=== PATIENT | female | born 1970 | race Caucasian/White ===

== ENCOUNTER 2016-10-02 21:58 | Inpatient (IN) | payer MEDICARE, OTHER ==
--- NOTE | 2016-10-02 22:51 | ED Physician Chart ---
Chief Complaint/HPI - Patient Information Date Seen:: 10/02/16 Time Seen:: 22:00 Chief Complaint:: Abdominal Pain History of Present Illness:: Onset x one day of intermittent, crampy lower abdominal pain with nausea; no A/V /D/C, fever, chills,melena, hematochezia, hematemesis, C/P, SOB, cough, congestion; has dark colored urine; no other urinary s/s; has flank pain; no H/ As, vertigo, neck pain, vaginal bleeding or discharge Allergies:: Allergies Allergy/AdvReac Type Severity Reaction Status Date / Time No Known Allergies Allergy Verified 10/02/16 22:15 Vitals:: Vital Signs - 8 hr 10/02/16 22:04 Temp 98.6 F HR 69 RR 18 BP 131/77 O2 Sat % 99 Historian:: Patient, Family Member Review:: Nurse's Note Reviewed Review of Systems - Review of Systems General/Constitutional: Fever, Chills, No weight loss, No weakness, No diaphoresis, No edema, No loss of appetite Skin: No skin lesions, No rash, No bruising Head: No headache, No light-headedness Eyes: No loss of vision, No pain, No diplopia ENT: No earache, No nasal drainage, No sore throat, No tinnitus Neck: No neck pain, No swelling, No thyromegaly, No stiffness, No mass noted Cardio Vascular: No chest pain, No palpitations, No PND, No orthopnea, No edema Pulmonary: No SOB, Cough, No sputum, No wheezing GI: Nausea, Vomiting, Diarrhea, Pain, No melena, No hematochezia, No constipation, No hematemesis G/U: Dysuria, Frequency, No hematuria Biologics Specialist: No vaginal discharge, No abnormal vaginal bleed, No contraction Musculoskeletal: No bone or joint pain, No back pain, No muscle pain Endocrine: No polyuria, No polydipsia Psychiatric: No prior psych history, No depression, No anxiety, No suicidal ideation, No homicidal ideation, No auditory hallucination, No visual hallucination Hematopoietic: No bruising, No lymphadenopathy Allergic/Immuno: No urticaria, No angioedema Neurological: No syncope, No focal symptoms, No weakness, No paresthesia, No headache, No seizure, No dizziness, No confusion, No vertigo Past Medical History - Past Medical History Past Medical History: No significant medical hx Family History: HTN Social History: Non Smoker, No Alcohol, No Drug Use, Surgical History: None Psychiatricy History: None Medication: Reviewed Family Medical History - Family Member Mother Hx Family Hypertension: Yes Physical Exam - Physical Examination General/Constitutional: Awake, Well-developed, well-nourished, Alert, No distress, GCS 15, Non-toxic appearing, Ambulatory Head: Atraumatic Eyes: Lids, conjuctiva normal, PERRL, EOMI Skin: Nl inspection, No rash, No skin lesions, No ecchymosis, Well hydrated, No lymphadenopathy ENMT: External ears, nose nl, Nasal exam nl, Lips, teeth, gums nl Neck: Nontender, Full ROM w/o pain, No JVD, No nuchal rigidity, No bruit, No mass, No stridor Respiratory: Nl effort/Exclusion, Clear to Auscultation, No Wheeze/Rhonchi/Rales Cardio Vascular: RRR, No murmur, gallop, rubs, NL S1 S2 GI: No tenderness/rebounding/guarding, No organomegaly, No hernia, Normal BS's, Nondistended, No mass/bruits, No McBurney tenderness : No CVA tenderness Extremities: No tenderness or effusion, Full ROM, normal strength in all extremities, No edema, Normal digits & nails Neuro/Psych: Alert/oriented, DTR's symmetric, Normal sensory exam, Normal motor strength, Judgement/insight normal, Mood normal, Normal gait, No focal deficits Misc: normal gait, Normal back, No paraspinal tenderness Labs/Radiology/EKG Results - Lab Results Results: U/A: Large Blood; + Leukocytes; + WBCs; + Bacteria; Na+: 130 - EKG Interpretations EKG Time:: 23:25 Rate & Rhythm: 63; NSR ED Septic Shock - . Is Septic Shock (SBP<90, OR Lactate>4 mmol\L) present?: No - <6hrs of presentation: Vital Signs: Vital Signs - 8 hr 10/02/16 22:04 Temp 98.6 F HR 69 RR 18 BP 131/77 O2 Sat % 99 Reassessment (Disposition) - Reassessment Reassessment Condition:: Improved - Diagnosis Diagnosis:: Hyponatremia; UTI; Dehydration; Abdominal Pain; Flank Pain; Hematuria; Teratoma ; Tubo-Ovarian Torsion; Intractable Pain - Aftercare/Follow up Instructions Aftercare/Follow-Up Instructions:: Counseled pt regarding lab results/diagnosis & need follow up, Counseled pt & family regarding lab results/diagnosis & need follow up - Patient Disposition Discharge/Transfer:: Acute Care w/in this hosp Accepting Physician:: Curtis Mcfadden Time Called:: 0150 Time Responded:: 01:50 Admitted to:: Med/Surg Spoke to:: Dr. Curtis Camargo Admitting Medical Physician:: Dr. Curtis Camargo Condition at Disposition:: Stable, Improved
[2016-10-02 23:04] LABS: % BASOPHILS 0.4 % (0.0-2.0); % EOSINOPHILS 0.6 % (0.0-5.0); % LYMPHOCYTES 19.9 % (20.0-50.0); % MONOCYTES 4.8 % (2.0-10.0); % NEUTROPHILS 74.3 % (40.0-80.0); HEMATOCRIT 39.5 % (35.0-45.0); HEMOGLOBIN 13.6 gm/dL (11.7-15.5); MEAN CELL VOLUME 89.8 fl (81-100); MEAN CORPUSCULAR HEMOGLOBIN 30.9 pg (27.0-31.0); MEAN CORPUSCULAR HGB CONC 34.4 pg (28.0-36.0); MEAN PLATELET VOLUME 8.6 fl; NEUTROPHILE ABSOLUTE 5.8 Th/cmm (1.8-8.0); PLATELET COUNT 232 Th/cmm (150-400); RED CELL DISTRIBUTION WIDTH 11.7 % (11.5-20.0); WHITE BLOOD COUNT 7.7 Th/cmm (4.8-10.8)
[2016-10-02] MEDS: Sodium Chloride 0.9% 1,000 ML IV ONE (23:14)
[2016-10-02 23:16] LABS: URINE BILIRUBIN NEGATIVE (NEGATIVE); URINE BLOOD LARGE (NEGATIVE); URINE COLOR YELLOW; URINE GLUCOSE (UA) NEGATIVE (NEGATIVE); URINE KETONE TRACE mg/dL (NEGATIVE); URINE PH 7.5; URINE PROTEIN NEGATIVE (NEGATIVE); URINE UROBILINOGEN 0.2 E.U./dL (0.2 - 1.0)
[2016-10-02 23:17] LABS: URINE BACTERIA FEW /hpf (NONE SEEN); URINE EPITHELIAL CELLS MODERATE /lpf (FEW); URINE RBC 0-2 /hpf (0-5)
[2016-10-02 23:17] LABS: AMYLASE SERUM 86 U/L (29-103); ANION GAP 10.7 (7.0-16.0); BUN - UREA NITROGEN 17 mg/dL (7-25); BUN/CREATININE RATIO 18.9; CALCIUM SERUM 9.4 mg/dL (8.6-10.3); CARBON DIOXIDE 22.9 mEq/L (21.0-31.0); CHLORIDE 100 mEq/L (98-107); CREATININE - SERUM 0.9 mg/dL (0.6-1.2); GLUCOSE 117 mg/dL (70-105); LIPASE 29 U/L (11-82); POTASSIUM SERUM 3.6 mEq/L (3.5-5.1); SODIUM SERUM 130 mEq/L (136-145)
[2016-10-02 23:24] LABS: CHOLESTEROL 185 mg/dL (<200); TRIGLYCERIDES 40 mg/dL (<150)
[2016-10-02 23:29] LABS: TROP I 0.01 ng/mL (0.01-0.05)
[2016-10-02 23:30] LABS: BNP 21.5 pg/mL (5.0-100.0)
[2016-10-02 23:32] LABS: INR 0.96 (0.5-1.4)
[2016-10-03] MEDS: cefTRIAXone 1 GM in Sodium Chloride 0.9% 50 ML IV ONE (00:39)
[2016-10-03] MEDS ORDERED: Morphine Sulfate 2 mg/mL 1mL Syr ONE (00:41)
[2016-10-03] MEDS: Morphine Sulfate 2 mg/mL 1mL Syr IVP STA (00:45)
[2016-10-03] MEDS ORDERED: Magnesium Hydroxide (MOM) 30 mL UDC PO PRN (01:53)
[2016-10-03] MEDS ORDERED: Hydrocodone/APAP 10 mg/325 mg Tab PO PRN (01:53)
[2016-10-03] MEDS ORDERED: Morphine Sulfate 4 mg/mL 1mL Syr IVP PRN (01:53)
[2016-10-03] MEDS ORDERED: Maalox 30 mL Cup PO PRN (01:53)
[2016-10-03] MEDS ORDERED: Hydrocodone/APAP 5mg/325mg Tab PO PRN (01:53)
[2016-10-03] MEDS: D5-0.9%NS 1,000 ML IV SCH (09:11)
--- NOTE | 2016-10-03 10:50 | Diagnostic Imaging Report ---
CT abdomen and pelvis without intravenous contrast Indication: Abdominal pain Comparison: None, Technique: Axial images were obtained from the lung bases to the bilateral proximal femurs without IV contrast. Coronal reconstructions were made. total DLP: 450, CTDI10 FINDINGS: Atelectatic changes of the lung bases are noted. Assessment of the solid organs is limited due to lack of IV contrast. No evidence of focal hepatic, splenic, pancreatic, or adrenal lesions. No evidence of hydronephrosis or focal renal lesions. Distended urinary bladder is noted. There is a 8.6 x 5.4 cm fat density mass of the pelvis with mass effect upon the uterus. There is copious amount of stool throughout the colon. No evidence of acute appendicitis. Small to moderate-sized fat-containing ventral hernia is noted. Additional small midline fat-containing hernia along the umbilical region is also noted. No evidence of free fluid. Degenerative changes of the spine and pelvis are noted. There may be mild scoliosis. IMPRESSION: Large pelvic mass with predominantly fat density. This may represent a teratoma. Other less likely etiologies would include likely leiomyoma. This may increase the risk of the patient to ovarian torsion. Clinical correlation and follow-up is recommended. Distended urinary bladder. Small to moderate fat-containing midline ventral hernia and additional smaller fat-containing hernia more inferiorly adjacent to the umbilicus. Copious amount of stool throughout the colon.
--- NOTE | 2016-10-03 10:51 | Admit Criteria Form ---
Admit Criteria Forms - Admit Criteria Diagnosis: ABDOMINAL PAIN Clinical Indications for Admission to Inpatient Care (Place 'X' for any and all applicable criteria): Admission is indicated for ANY ONE of the following(1)(2)(3)(4)(5): [X]I. Inpatient admission required rather than observation care (Also use Abdominal Pain: Observation Care, as appropriate) because of ANY ONE of the following: [X]a) Severe pain requiring acute inpatient management [ ]b) Identification of etiology/finding that requires inpatient care (eg, aortic dissection, free air) [ ]c) Absent bowel sounds with complete ileus(6) [ ]d) Suspected toxic megacolon [ ]e) Severe electrolyte abnormalities requiring inpatient care [ ]f) High fever or infection requiring inpatient admission as indicated by ANY ONE of following(7)(8): [ ] i) Appropriate outpatient or observational care antimicrobial treatment unavailable, not effective, or not feasible [ ] ii) Documented bacteremia [ ] iii) Temperature > 104.9 degrees F (oral) [ ] iv) T >103.1 F (oral) or < 96.8 F(rectal) that does not respond to all emergency treatment measures [ ]g) Signs of intestinal obstruction [B] [ ]h) Hemodynamic instability [ ]i) IV fluid to replace significant ongoing losses (greater than 3 L/m2 per day) (12)(13) [ ]j) Percutaneous or open drainage (eg, abscess, biliary tract ) procedures [ ]k) Parenteral nutrition regimen that must be implemented on inpatient basis [ ]l) Other condition,treatment or monitoring requiring inpatient admission. [ ]II. Peritoneal signs present [ ]III. Surgery needed that cannot be performed on an ambulatory basis. [ ]IV. Evaluation requires patient to not eat or drink for extended period ( eg, more than 24 hours). [ ]V. Contraindications and/or Inappropriate clinical situations for Observational Care in patients with abdominal pain, when ANY ONE of the following is required: [ ]a) Thorough evaluation is required to prevent catastrophic events due to delays in diagnosing (e.g.Mesenteric ischemia) 1,3 [ ]b) Patient with severe pathology or with chronic symptoms unlikely to improve in the ED stay (3) [ ]. General contraindications and/or Inappropriate clinical situations for Observational Care in patients with abdominal pain, when ANY ONE of the following is required: [ ]a) Prediction of prolongation of LOS based on ANY ONE of the following may be considered as a contraindication for observational care 2, 3, 4, 5, 6, 7, 8, 9, 10, 11 [ ]i) Age > 65 yrs. [ ]ii) Patient arriving by ambulance [ ]iii) Patient with high acuity [ ]iv) Patient requiring vital sign monitoring [ ]v) Patient on IV medication [ ]b) Systolic blood pressures 180mmHg 3,12 [ ]c) Patient with altered mental status including delirium and other alteration of consciousness, (3) [ ]d) Patient whose discharge disposition will be to a care home home or rehabilitation home should not be managed in Emergency Department Observation Unit. CMS rule requires 3 days hospital stay before such placement.3,13 [ ]e) Patient with failure to thrive due to broad array of etiologies 3,16,17 [ ]f) Inability to ambulate 3,14 Extended stay beyond goal length of stay may be needed for(2)(3): [ ]a) Persistent abdominal pain with suspected intra-abdominal process [ ]b) Diagnosed condition requiring continued stay (e.g., pancreatitis, complicated diverticulitis) [ ]c) Surgery (e.g., colectomy) The original [employer] content created by [employer] has been revised. The portions of the content which have been revised are identified through the use of italic text or in bold, and [facility] has neither reviewed nor approved the modified material.All other unmodified content is copyright [facility]. Please see references footnoted in the original [facility] [facility] edition 2016
[2016-10-03 14:41] VITALS: BP 127/88
--- NOTE | 2016-10-04 06:37 | Consultation ---
DATE OF CONSULTATION: 10/03/2016 REQUESTING PHYSICIAN: Dr. Curtis Camargo. REASON FOR CONSULTATION: Abdominal pain. HISTORY OF PRESENT ILLNESS: A 46-year-old female, otherwise healthy, presenting with a few day history of lower abdominal pain. She had some nausea without emesis. She denied diarrhea or constipation. Last menstrual period was a few days ago. She denies menorrhagia. Imaging is suggestive of pelvic mass and gynecological evaluation was recommended; however, the hospital did not have the gynecologic service available. The patient felt better. The pain has improved. She never had a colonoscopy and endoscopy previously. PAST MEDICAL HISTORY: As above, otherwise relatively healthy. MEDICATIONS: Here are Tylenol, Pep, Maalox, Rocephin, milk of magnesia, morphine, Zofran, and IV fluids. ALLERGIES: None. SOCIAL HISTORY: No recent tobacco, alcohol or drugs. FAMILY HISTORY: Noncontributory. REVIEW OF SYSTEMS: Comprehensive 12-point review of system was conducted and is only positive for those signs and symptoms present in the history of present illness. PHYSICAL EXAMINATION: VITAL SIGNS: Temperature 98.2, blood pressure 127/88, pulse of 66, respirations 18, O2 sats 100%. GENERAL: The patient is well-developed, well-nourished female in no acute distress. HEENT: Sclerae nonicteric. Oropharynx is clear. CARDIOVASCULAR: Regular rate and rhythm. LUNGS: Clear to auscultation bilaterally. ABDOMEN: Soft, nontender, slightly distended. EXTREMITIES: No clubbing, cyanosis or edema. RECTAL: Deferred. LABORATORY DATA AND IMAGING: Complete blood count, normal. Coagulation profile, normal. Chemistry shows sodium of 130, otherwise unremarkable. Liver enzymes and lipase are normal. Urinalysis is essentially clear except for some trace leukocyte esterase and 6-[address] of the abdomen and pelvis done last night without contrast showed a large pelvic mass 8.6 x 5.4 cm of fat density with mass effect upon the uterus, which may represent a teratoma versus less likely leiomyoma, less likely ovarian torsion also distended urinary bladder and a small to moderate fat-containing midline ventral hernia, copious amount of stool throughout the colon. IMPRESSION: 1. Lower abdominal pain, likely from pelvic mass, which could be from ovarian or uterine etiology less likely colonic pathology. 2. Mild constipation. RECOMMENDATIONS: 1. No further endoscopic workup is recommended at this time. 2. Follow up with gynecologic service, but outpatient workup is acceptable. 3. Diet as tolerated. 4. Outpatient GI workup for chronic constipation if persistent. [facility]# [id number]
--- NOTE | 2016-10-04 09:41 | History & Physical ---
ADMIT DATE: 10/03/2016 CHIEF COMPLAINT: Abdominal pain. HISTORY OF PRESENT ILLNESS: The patient is a 46-year-old female, who presented to the ER complaining of 1 day ____ crampy lower abdominal pain with nausea. The patient denies any other complaints. ALLERGIES: No known allergies. REVIEW OF SYSTEMS: See present illness. PAST SURGICAL HISTORY: Negative. SOCIAL HISTORY: Denies any reports of smoking, alcohol or drug use. MEDICATIONS: See medication reconciliation form. PSYCHIATRIC HISTORY: Negative. PHYSICAL EXAMINATION: GENERAL: The patient is awake, alert, nontoxic in appearance. HEENT: Normocephalic, atraumatic. Extraocular movements are intact. Oropharynx clear. NECK: Supple. No thyromegaly. No lymphadenopathy. CARDIOVASCULAR: S1 and S2. No murmurs, rubs or gallops. RESPIRATORY: Clear. No wheeze or rhonchi. GASTROINTESTINAL: Soft, nontender. Positive bowel sounds. GENITOURINARY: No CVA tenderness. No suprapubic tenderness. BACK: No midline tenderness. EXTREMITIES: Equal pulses bilaterally. No cyanosis, clubbing or edema. SKIN: Negative. PSYCHIATRIC: Negative. NEUROLOGIC: ____. Extraocular movements are intact. Neurovascular is intact. Bilateral muscle strengths ____. LABORATORY DATA: On admission are as follows: Hematology: WBC 7.7, hemoglobin ____, platelet count 232, 19% lymphocytes. PT 10.0, INR 0.96. Chemistry: Sodium 130, potassium 3.6, chloride ____, anion gap 10, BUN ____, creatinine of 0.9, GFR more than 60, glucose 117, calcium ____. Troponin 0.01. BNP is ____, cholesterol is 185, LDL 105, HDL 68. Amylase is 86, lipase 29. Urine test negative. Urinalysis, large blood, small leukocyte esterase ____. Abdomen and pelvis CT, large pelvic mass, probably ____ may represent teratoma. ____. Distended urine bladder. ____ containing midline ventral hernia, in addition ____ to the umbilicus. IMPRESSION: 1. Abdominal pain. 2. Ventral hernia. 3. Umbilical hernia. 4. Pelvic mass. 5. Possible teratoma versus leiomyoma. 6. Hyponatremia. 7. Hyperglycemia. 8. Hematuria. 9. Possible urinary tract infection. PLAN: The patient admitted to medical/surgical unit, seen by Dr. Bebeto Camargo. Obtain further labs and consultation as needed. JOB# [id number]
== END 2016-10-03 13:30 | disposition home or self-care (01) | DRG 392 ==
LOC: ER 21:58 → MSI 10-03 01:48
PROVIDERS: ADMIT Preventive Medicine Preventive Medicine/Occupational Environmental Medicine; ATTEND Preventive Medicine Preventive Medicine/Occupational Environmental Medicine
DX: R10.9 Unspecified abdominal pain (principal); E87.1 Hypo-osmolality and hyponatremia; E86.0 Dehydration; D48.9 Neoplasm of uncertain behavior, unspecified; K43.9 Ventral hernia without obstruction or gangrene; K42.9 Umbilical hernia without obstruction or gangrene; N83.519 Torsion of ovary and ovarian pedicle, unspecified side; R19.00 Intra-abdominal and pelvic swelling, mass and lump, unspecified site; R31.9 Hematuria, unspecified; R73.9 Hyperglycemia, unspecified; K59.00 Constipation, unspecified; Z82.49 Family history of ischemic heart disease and other diseases of the circulatory system
CPT/HCPCS: 36415-UA; 80048-TC; 80061-TC; 81001-TC; 81025-TC; 82150-TC; 82550-TC; 83690-TC; 83880-TC; 84484-TC; 84703-TC; 85025-TC; 85610-TC; 87086-90; 93005; 94760; 96375; J0696; J2270; J2405; J7030; J7042